=== PATIENT | female | born 1975 | race Caucasian/White ===

== ENCOUNTER 2016-11-28 08:17 | Day surgery (SDC) | payer OTHER ==
[~2016-11-28] VITALS: Ht 152.4 cm; Wt 112.0 kg
[2016-11-28] MEDS ORDERED: NS IV 1000 ML 1,000 ML ONE (08:26)
[2016-11-28] MEDS ORDERED: NS IV 1000 ML 1,000 ML IV STA (08:53)
[2016-11-28] MEDS ORDERED: fentaNYL INJECTION 100 MCG/2 ML AMP IVP PRN (09:00)
[2016-11-28] MEDS ORDERED: MIDAZOLAM 2 MG/2 ML (VERSED) VIAL IVP PRN (09:00)
[2016-11-28] MEDS ORDERED: NALOXONE 0.4 MG/ML 1 ML (NARCAN) VIAL IVP PRN (09:00)
[2016-11-28] MEDS ORDERED: FLUMAZENIL (ROMAZICON) 0.1 MG/ML 5 ML VIAL INJ PRN (09:00)
[2016-11-28] MEDS ORDERED: HURRICAINE EXT TUBE (BENZOCAINE) XX PRN (09:00)
[2016-11-28 09:01] VITALS: BP 116/77
[2016-11-28] MEDS ORDERED: proPOfol 200 MG/20 ML (DIPRIVAN) VIAL IV ONE (09:02)
[2016-11-28] MEDS ORDERED: OMEP40CA36 PO (09:09)
[2016-11-28] MEDS ORDERED: METF1000 PO (09:09)
[2016-11-28] MEDS ORDERED: SIMV5TAB PO (09:09)
[2016-11-28] MEDS ORDERED: CELE50CA PO (09:09)
[2016-11-28] MEDS ORDERED: ESCI5TAB PO (09:09)
[2016-11-28] MEDS ORDERED: HURRICAINE EXT TUBE (BENZOCAINE) ONE (11:54)
[2016-11-28] MEDS ORDERED: LACTATED RINGERS 1,000 ML IV ONE (12:23)
[2016-11-28] MEDS ORDERED: SUCR1TAB36 PO (12:34)
[2016-11-28] MEDS ORDERED: PANT40TA2 PO (12:34)
--- NOTE | 2016-11-28 12:34 | Progress Note-Post Operative ---
Post-Operative Progess Note Pre-Operative Diagnosis questionable hx adam's, GERD Post-Operative Diagnosis short segment adam's esophagitis, hiatal hernia Post-Op Procedure Note Date of Procedure: Nov 28, 2016 Name of Procedure: egd c biopsy Procedure Note/Findings see note Anesthesia Type per chemistry lab instructor Estimated blood loss (mL): none Specimen(s) collected GE junction COREEN PINO DO Nov 28, 2016 12:34 pm
--- NOTE | 2016-11-28 12:37 | Discharge Inst-Simple/Standard ---
Discharge Inst-Standard Discharge Medications New, Converted or Re-Newed RX: RX on Chart Patient Instructions/Follow Up Plan of Care/Instructions/FU: Follow up with Dr. Cazares in 2 -3 weeks Take medication as directed. Activity as Tolerated: Yes Discharge Diet: No Restrictions SHARITA REYNOSO APRN Nov 28, 2016 12:36
[2016-11-28 12:50] VITALS: BP 108/51
--- NOTE | 2016-11-28 12:52 | OPERATIVE REPORT ---
PROCEDURE PHYSICIAN: COREEN PINO DATE OF PROCEDURE: 11/28/2016 PREOPERATIVE DIAGNOSIS: 1. Questionable history of Gray's. 2. GERD. POSTOPERATIVE DIAGNOSES: 1. Short segment Gray's esophagitis. 2. Hiatal hernia. PROCEDURE: EGD with biopsy at GE junction. SURGEON: Sage. ANESTHESIA: Per CUTTING MACHINE OPERATOR. ESTIMATED BLOOD LOSS: None. COMPLICATIONS: None. INDICATIONS: The patient is a 40-year-old female with questionable history of Gray's and reflux. The patient states that she is not compliant with her omeprazole and does have return of her reflux symptoms. The patient was explained risk and benefits of the procedure and wishes to proceed with procedure. Consent was signed on the chart. PROCEDURE: The patient was taken to the endoscopy suite, placed in left lateral recumbent position. Timeout was performed. The scope was inserted in the mouth, down the esophagus, stomach and into the duodenum. There were no polyps, masses or ulcerations within the duodenum. The scope was slowly retracted back into the stomach where it was further insufflated. The stomach had no polyps, masses or ulcerations. The scope was retroflexed noting a small hiatal hernia. The scope was returned its normal position and slowly withdrawn until back into the esophagus. At the GE junction, there was a very short segment approximately 1 cm area which looks to be Gray's. Biopsy of this section was obtained. The scope was then slowly retracted back noting no further pathology. The scope was then slowly retracted with completely removed. The patient tolerated procedure well without any complications. She was taken to recovery room in stable condition. RECOMMENDATIONS: The patient will be switched to Protonix and Carafate. The patient will be explained need for compliance. Depending upon pathology, further recommendations pending. Job ID: [id number] Dictated Date: 11/28/2016 12:37:07 Load Mixer Date: 11/28/2016 12:46:22 / mckenna
[2016-11-28 13:15] VITALS: BP 111/90
[2016-11-28 13:25] VITALS: BP 111/90
== END 2016-11-28 13:25 | disposition home or self-care (01) ==
LOC: SDC 08:17
PROVIDERS: ATTEND Surgery
DX: K22.70 Barrett's esophagus without dysplasia (principal); K44.9 Diaphragmatic hernia without obstruction or gangrene
CPT/HCPCS: 82962

== ENCOUNTER → 2016-11-28 | Outpatient (CLI) | payer SELFPAY ==
[~2016-11-28] MED LIST: CELE50CA PO; ESCI5TAB PO; METF1000 PO; OMEP40CA36 PO; PANT40TA2 PO; SIMV5TAB PO; SUCR1TAB36 PO
--- NOTE | 2016-11-28 16:25 | Diagnostic Imaging Report ---
PROCEDURE: MRI lumbar spine. TECHNIQUE: Multiplanar, multisequence MRI of the lumbar spine was performed without contrast. INDICATION: Low back pain and right leg pain and numbness. FINDINGS: There is minimal posterior translation of L5 over S1 which appears to relate to disc height loss at this level. The alignment of the lumbar spine is satisfactory otherwise. The vertebral body heights are preserved. There is moderate disc height loss at the L5/S1 level. There is no significant marrow signal abnormality. There is disc desiccation at L5/S1 level. The cauda equina and conus medullaris appear grossly unremarkable. T12/L1: No disc herniation, no spinal canal or foraminal stenosis. L1/2: No disc herniation, no spinal canal or foraminal stenosis. L2/3: No disc herniation, no spinal canal or foraminal stenosis. There is mild facet hypertrophy at this level. L3/4: No disc herniation. There is mild facet hypertrophy. No spinal canal or foraminal stenosis. L4/5: There is no disc herniation. There is mild facet hypertrophy. No central canal or lateral recess stenosis. No foraminal stenosis. L5/S1: There is a mild disc bulge and mild facet hypertrophy. There is no significant central canal stenosis. There is mild narrowing in the left lateral recess and no significant narrowing in the right lateral recess. There is no significant foraminal stenosis. IMPRESSION: Generally mild degenerative changes seen in the lower lumbar spine facet joints and at the L5/S1 disc. There is only mild left lateral recess stenosis at L5/S1 level abutting the descending left S1 nerve root. There is otherwise no significant spinal canal or foraminal stenosis at any level. Dictated by: Dictated on workstation # [id number]
== END ==
LOC: RAD 15:10
PROVIDERS: ATTEND Nurse Practitioner Family
DX: M54.42 Lumbago with sciatica, left side (principal)
CPT/HCPCS: 72148

== ENCOUNTER 2017-04-10 13:56 | Outpatient (CLI) | payer SELFPAY ==
[~2017-04-10] VITALS: Ht 152.4 cm; Wt 112.0 kg
[2017-04-10] MEDS ORDERED: METF500T4 PO (14:21)
[2017-04-10] MEDS ORDERED: BACL10TA PO (14:21)
[2017-04-10] MEDS ORDERED: SIMV40TA PO (14:21)
[2017-04-10] MEDS ORDERED: CELE200C PO (14:21)
[2017-04-10] MEDS ORDERED: BUPR150T14 PO (14:21)
[2017-04-10] MEDS ORDERED: CHOL500049 PO (14:21)
[2017-04-10] MEDS ORDERED: PANT40TA2 PO (14:21)
== END 2017-04-10 14:26 ==
LOC: PREOP 13:56
PROVIDERS: ATTEND Surgery
DX: Z01.818 Encounter for other preprocedural examination (principal); R19.4 Change in bowel habit; K21.9 Gastro-esophageal reflux disease without esophagitis

== ENCOUNTER 2017-04-12 06:59 | Day surgery (SDC) | payer OTHER ==
[~2017-04-12] VITALS: Ht 152.4 cm; Wt 112.0 kg
[~2017-04-12 06:59] MED LIST changes: +BACL10TA PO; +BUPR150T14 PO; +CELE200C PO; +CHOL500049 PO; +METF500T4 PO; +SIMV40TA PO
[2017-04-12] MEDS ORDERED: NS IV 1000 ML 1,000 ML IV STA (07:04)
[2017-04-12] MEDS ORDERED: HURRICAINE EXT TUBE (BENZOCAINE) XX PRN (07:15)
[2017-04-12] MEDS ORDERED: PROPOFOL INJECTION 50 ML IV ONE (07:16)
[2017-04-12] MEDS ORDERED: MIDAZOLAM 2 MG/2 ML (VERSED) VIAL ONE ×2 (07:16)
[2017-04-12 07:29] VITALS: BP 139/92
[2017-04-12] MEDS ORDERED: HURRICAINE EXT TUBE (BENZOCAINE) ONE (07:44)
--- NOTE | 2017-04-12 07:47 | Progress Note-Pre Operative ---
Pre-Operative Progress Note H&P Reviewed The H&P was reviewed, patient examined and no changes noted. Date H&P Reviewed: April 12, 2017 Time H&P Reviewed: 07:46 Pre-Operative Diagnosis: gerd, hiatal hernia, history of adam's, change in bowel movements COREEN PINO DO April 12, 2017 07:47
[2017-04-12] MEDS ORDERED: proPOfol 200 MG/20 ML (DIPRIVAN) VIAL IV ONE (08:17)
[2017-04-12 08:30] VITALS: BP 121/72
--- NOTE | 2017-04-12 08:37 | Progress Note-Post Operative ---
Post-Operative Progess Note Surgeon (s)/Line Ordering Clinician (s) Surgeon COREEN PINO DO Line Ordering Clinician: na Pre-Operative Diagnosis gerd, hiatal hernia, history of adam's, change in bowel movements Post-Operative Diagnosis gerd, small hiatal hernia, short segment adam's, colon poyp cecum and sigmoid colon Procedure & Operative Findings Date of Procedure 04/12/17 Procedure Performed/Findings EGD with biopsies, colonoscopy with hot bx polypectomy x 2 Anesthesia Type per senior interactive developer Estimated Blood Loss Estimated blood loss (mL): scant Specimens/Packing Specimens Removed antrum, ge junction (multiple) cecal polyp, sigmoid polyp COREEN PINO DO April 12, 2017 8:37 am
[2017-04-12] MEDS ORDERED: SUCR1TAB36 PO ×3 (08:38→08:47)
--- NOTE | 2017-04-12 08:41 | Discharge Inst-Simple/Standard ---
Discharge Inst-Standard Discharge Medications New, Converted or Re-Newed RX: RX on Chart Patient Instructions/Follow Up Plan of Care/Instructions/FU: Patient to continue with Carafate 1g QID for 4 months Continue with Protonix 40 mg once a day Follow up with Dr. Cazares in 2 week Activity as Tolerated: Yes Discharge Diet: Eat Small Frequent Meals SHARITA REYNOSO APRN April 12, 2017 08:41
[2017-04-12 09:00] VITALS: BP 127/85
[2017-04-12 09:25] VITALS: BP 127/85
--- NOTE | 2017-04-16 12:53 | OPERATIVE REPORT ---
DATE OF SERVICE: 04/12/2017 PREOPERATIVE DIAGNOSIS: Gastroesophageal reflux disease, hiatal hernia, history of Gray's, change in bowel movements. POSTOPERATIVE DIAGNOSES: Gastroesophageal reflux disease, small hiatal hernia, short segment Gray's, colon polyp of the cecum and sigmoid colon. PROCEDURE: EGD with biopsies and colonoscopy with hot biopsy polypectomy x2. ANESTHESIA: Per WEAPONS DESIGNER. SURGEON: Coreen Cazares D.O. ESTIMATED BLOOD LOSS: Scant. INDICATIONS: The patient is a 41-year-old female with a history of Gray's. She has had worsening GERD. She has also had change in bowel movements. She understands risks and benefits of procedures and wished to proceed with procedure. Consent was signed in the chart. DESCRIPTION OF PROCEDURE: The patient was taken to the endoscopy suite, placed in left lateral recumbent position. Timeout was performed. Scope was inserted in mouth, down into esophagus, stomach and into the duodenum without difficulty. There were no polyps, masses or ulcerations within the duodenum. The scope was slowly retracted back. There are no polyps, masses or ulcerations within the stomach. Scope was retroflexed noting a small hiatal hernia. No other pathology noted. Scope was returned to its normal position. There were some slight erythematous changes in the antrum. Biopsy of the antrum was obtained. The scope was continued to slowly retracted back into the distal esophagus in which a very short segment of Gray's was present. Multiple biopsies were obtained. The scope was slowly retracted back noting no other pathology. The scope was slowly retracted until completely removed. Digital rectal exam was performed. There were no palpable polyps, masses or ulcerations. Scope was inserted in the rectum and advanced all the way to the cecum with minimal difficulty. Prep was adequate with irrigation and suction. Small polyp within the cecum for which hot biopsy polypectomy was performed. Scope was then continued to be slowly retracted back. There were no polyps, masses or ulcerations within the ascending, transverse and descending colon. In the sigmoid colon, a small sessile polyp present. Hot biopsy polypectomy was performed. Scope was then slowly retracted back into the rectum where it was also retroflexed noting no other pathology. Scope was returned to its normal position, slowly withdrawn until completely removed. The patient tolerated procedure well without any complications. She was taken to recovery room in stable condition. RECOMMENDATIONS: The patient will follow up in the office in 2 weeks to discuss pathology results. The patient will need repeat EGD in 1 year, would consider sending to gastroenterology. Colonoscopy, patient with polyps would repeat colonoscopy in 5 years. If she has any problems prior to that, she should be reevaluated. We will make sure the patient is on Protonix and Carafate at this time and see how her symptoms, if they improve. Job ID: [id number] DocumentID: [id number] Dictated Date: 04/12/2017 08:39:07 Marketing Content Specialist Date: 04/12/2017 09:45:34 Dictated By: COREEN CAZARES DO
== END 2017-04-12 09:25 | disposition home or self-care (01) ==
LOC: ENDO 06:59
PROVIDERS: ATTEND Surgery
DX: K63.5 Polyp of colon (principal); R19.4 Change in bowel habit; K22.70 Barrett's esophagus without dysplasia; K21.9 Gastro-esophageal reflux disease without esophagitis; K44.9 Diaphragmatic hernia without obstruction or gangrene; F17.210 Nicotine dependence, cigarettes, uncomplicated
CPT/HCPCS: 82962

== ENCOUNTER 2017-08-29 08:11 | Outpatient (RCR) | payer OTHER | END 2017-10-01 09:48 | disposition home or self-care (01) | PROVIDERS: ATTEND Nurse Practitioner Family | DX: M54.42 Lumbago with sciatica, left side (principal) ==

== ENCOUNTER → 2017-09-04 | Outpatient (CLI) | payer OTHER ==
--- NOTE | 2017-09-04 11:00 | Diagnostic Imaging Report ---
PROCEDURE: CT abdomen and pelvis without contrast. TECHNIQUE: Multiple contiguous axial images were obtained through the abdomen and pelvis without the use of intravenous contrast. INDICATION: Dysuria and bilateral flank pain. FINDINGS: There is a 7 mm noncalcified nodular density in the left lung base. Right lung base is clear. Heart size is normal. There is no pleural or pericardial fluid. There is mild fatty infiltration of the liver. Gallbladder is surgically absent. There is no biliary ductal dilatation. Spleen is normal. The pancreas and adrenal glands are unremarkable. The kidneys are normal in appearance. Specifically, there is no evidence of nephrolithiasis or obstructive uropathy. Abdominal aorta is nonaneurysmal. Bowel gas pattern is nonspecific. Bladder is normal. There is no pelvic mass, adenopathy or free fluid. There are mild degenerative changes in the spine. IMPRESSION: 1. 7 mm noncalcified nodular density in the left lung base. This is likely a noncalcified granuloma however early neoplastic process cannot be entirely excluded. Short interval followup CT in two months is recommended to ensure stability. 2. Hepatomegaly and fatty infiltration of the liver. 3. No other acute abnormality in the abdomen or pelvis. Specifically, there is no evidence of nephrolithiasis or obstructive uropathy. Dictated by: Dictated on workstation # [id number]
== END ==
LOC: RAD 09:58
PROVIDERS: ATTEND Nurse Practitioner Family
DX: R91.1 Solitary pulmonary nodule (principal); K76.0 Fatty (change of) liver, not elsewhere classified; R16.0 Hepatomegaly, not elsewhere classified
CPT/HCPCS: 74176

== ENCOUNTER → 2017-11-15 | Outpatient (CLI) | payer OTHER ==
[~2017-11-15] MED LIST changes: +IOHEXOL 350 MG/ML 100 ML (OMNIPAQUE 350) VIAL IV ONE; +NS 100 ML (IVPB) BAG IV ONE
--- NOTE | 2017-11-15 08:37 | Diagnostic Imaging Report ---
PROCEDURE: CT chest with contrast only. TECHNIQUE: Multiple contiguous axial images were obtained through the chest after administration of intravenous contrast. INDICATION: Followup pulmonary nodule seen on previous CT abdomen and pelvis. COMPARISON: CT abdomen pelvis dated 09/04/2017. FINDINGS: Evaluation of lung windows demonstrates no focal consolidation, pleural effusion, nor pneumothorax. There is mild image degradation secondary to motion artifact. Small micronodule is again identified involving the anterolateral margins of the left lower lobe and measures approximately 6 mm on today's exam. This has not significantly changed compared to 7 mm on prior study. No other pulmonary nodules or masses are identified. Cardiomediastinal structures show normal heart size. There is no large pericardial effusion. No pathologically enlarged or morphologically abnormal adenopathy is seen within the mediastinum, wero, nor axilla. Included portions of the upper abdomen show hypodense appearance to the hepatic parenchyma. Bony structures show no acute abnormalities. IMPRESSION: 1. 6-7 mm micronodule in the left lower lobe is stable compared to 09/04/2017. Please see below for recommendations for pulmonary micronodule followup. 2. No new pulmonary nodules or masses. No other adverse interval change is identified. 3. Hepatic steatosis. PULMONARY NODULE FOLLOW-UP Single nodule: <6 mm: * Low risk patient - no routine follow up * High risk patient - optional at 12 months 6-8 mm in size: * Low risk patient - Ct at 6-12 months, then consider at 18-24 months * High risk patient - Ct at 6-12 months, then at 18-24 months >8 mm * Low risk patient - consider CT at 3 months, PET/CT or tissue sampling * High risk patient - consider CT at 3 months, PET/CT, or tissue sampling (Certain patients at thigh risk with suspicious nodule morphology, upper lobe location, or both may warrant 12-month follow-up) Dictated by: Dictated on workstation # [id number]
== END ==
LOC: RAD 07:38
PROVIDERS: ATTEND Nurse Practitioner Family
DX: R91.1 Solitary pulmonary nodule (principal); K76.0 Fatty (change of) liver, not elsewhere classified
CPT/HCPCS: 71260

== ENCOUNTER → 2019-06-25 | Outpatient (CLI) | payer OTHER ==
[~2019-06-25] MED LIST changes: -IOHEXOL 350 MG/ML 100 ML (OMNIPAQUE 350) VIAL IV ONE; +METF-397 PO; +METF-399 PO; -METF1000 PO; -METF500T4 PO; -NS 100 ML (IVPB) BAG IV ONE
--- NOTE | 2019-06-25 12:34 | Diagnostic Imaging Report ---
PROCEDURE: CT chest without contrast. TECHNIQUE: Multiple contiguous axial images were obtained through the chest without the use of intravenous contrast. Auto Exposure Controls were utilized during the CT exam to meet ALARA standards for radiation dose reduction. INDICATION: Lung nodule. FINDINGS: Comparison is 11/15/2017. There is a stable 6 mm perifissural nodule with triangular appearance along the left fissure in keeping with a lymph node. No suspicious nodules are seen. No edema or pneumonia. No pleural effusion or pneumothorax. Heart size is normal. No pericardial effusion. Aorta is normal in caliber. There is no axillary, supraclavicular or mediastinal lymphadenopathy. Limited views of the upper abdomen are normal. The gallbladder has been resected. There are no suspicious osseous lesions. IMPRESSION: 1. Stable fissural lymph node in the left lung, no suspicious pulmonary nodules. Dictated by: Dictated on workstation # [id number]
== END ==
LOC: RAD 11:47
PROVIDERS: ATTEND Nurse Practitioner Primary Care
DX: R91.1 Solitary pulmonary nodule (principal)
CPT/HCPCS: 71250

== ENCOUNTER 2021-03-04 05:40 | Outpatient (RCR) | payer OTHER ==
[~2021-03-04] VITALS: Ht 149.9 cm; Wt 110.0 kg
[~2021-03-04 05:40] MED LIST changes: +ATOR40TA70 PO; +ESCI20TA39 PO; +GABA300C PO; +OMEP40CA27 PO; -OMEP40CA36 PO
== END 2021-03-04 09:34 | disposition home or self-care (01) ==
LOC: PREOP 05:40
PROVIDERS: ATTEND Surgery
DX: Z01.818 Encounter for other preprocedural examination (principal)

== ENCOUNTER → 2022-12-12 | Outpatient (CLI) | payer BC ==
[~2022-12-12] VITALS: Ht 149.4 cm; Wt 108.0 kg
[~2022-12-12] MED LIST changes: +BUPR-105 PO; -BUPR150T14 PO; +LISI5TAB20 PO; -OMEP40CA27 PO; +OMEP40CA6 PO
== END ==
LOC: PREOP 05:30
PROVIDERS: ATTEND Surgery
DX: Z01.818 Encounter for other preprocedural examination (principal)

== ENCOUNTER → 2023-04-09 | Outpatient (CLI) | payer BC ==
[~2023-04-09] MED LIST changes: +ATOR80TA76 PO; +AZIT250T12 PO; +BENZ100C18 PO; +CEFD300C3 PO; +CELE-63 PO; +CHOL100048 PO; +DULO30CA49 PO; +METF-478 PO; +METF-865 PO; +NITR100C10 PO; +OMEG100032 PO; +PANT40TA52 PO; +RT-ALBUTEROL SULF 2.5 MG/3 ML PRE-MIX VIAL INH ONE; +SIMV-334 PO; -SIMV40TA PO
== END ==
LOC: RT 10:09
PROVIDERS: ATTEND Nurse Practitioner Family
DX: F17.210 Nicotine dependence, cigarettes, uncomplicated (principal)
CPT/HCPCS: 94060; 94726; 94729

== ENCOUNTER 2023-04-26 19:13 | Emergency (ER) | payer BC ==
[~2023-04-26] VITALS: Ht 152 cm; Wt 104.0 kg
[~2023-04-26 19:13] MED LIST changes: -RT-ALBUTEROL SULF 2.5 MG/3 ML PRE-MIX VIAL INH ONE
--- NOTE | 2023-04-26 19:49 | ED Integumentary General ---
"General Chief Complaint: Skin/Wound Problems Stated Complaint: RIPPED TOE NAIL OFF|FELL Nursing Triage Note: pt presents to ED with c/o nearly ripping off right big toenail after stubbing foot on a piece of steel. pt was scheduled to have toenail removed next week. bleeding controlled at this time. unknown last tetanus shot. Source: patient Exam Limitations: no limitations (ALLAN VELAZCO) History of Present Illness Date Seen by Provider: Apr 26, 2023 Time Seen by Provider: 19:47 Initial Comments Patient is a 47-year-old female presents ED with potential toenail injury. She states around 640 PM she tripped over a cattle panel in her garden pulling back her nail on her right big toe. She report immediate pain. She denies kicking anything but more of a trip. History of toenail removal in the past. She does follow-up with the radio journalist. She is up-to-date on her tetanus. Denies nausea, vomiting, diarrhea fever, chills (ALLAN VELAZCO) Allergies and Home Medications Allergies Coded Allergies: codeine (Unverified Allergy, Unknown, 04/10/17) latex (Unverified Allergy, Unknown, 04/10/17) Patient Home Medication List Home Medication List Reviewed: Yes (ALLAN VELAZCO) Atorvastatin Calcium (Atorvastatin Calcium) 80 Mg Tablet, 80 MG PO HS, (Reported) Entered as Reported by: ROJAS GRANT on 03/09/23 1320 Azithromycin (Azithromycin) 250 Mg Tablet, 250 MG PO DAILY Prescribed by: JONNATHAN CHAIREZ on 03/12/23 1021 Benzonatate (Tessalon Perles) 100 Mg Capsule, 200 MG PO TID Prescribed by: JONNATHAN CHAIREZ on 03/12/23 102 Cefdinir (Cefdinir) 300 Mg Capsule, 300 MG PO BID Prescribed by: JONNATHAN CHAIREZ on 03/12/23 1021 Cephalexin (Cephalexin) 500 Mg Tablet, 500 MG PO QID Prescribed by: MEGHAN COBOS on 04/26/232020 Cholecalciferol (Vitamin D3) (Vitamin D3) 25 Mcg (1000 Unit) Capsule, 25 MCG PO DAILY, (Reported) Entered as Reported by: ROJAS GRANT on 03/09/23 1320 Duloxetine HCl (Duloxetine HCl) 30 Mg Capsule.dr, 60 MG PO HS, (Reported) Entered as Reported by: ROJAS GRANT on 03/09/23 132 Gabapentin (Neurontin) 300 Mg Capsule, 300 MG PO HS, (Reported) Entered as Reported by: ALLISON ANDRADE on 03/01/21 1108 Lisinopril (Lisinopril) 5 Mg Tablet, 5 MG PO HS, (Reported) Entered as Reported by: ROJAS GRANT on 03/09/23 1320 [place]-3/Dha/Epa/Fish Oil (Fish Oil 1,000 mg Softgel) 1,000 Mg (120 Mg-180 Mg) Capsule, 1,000 MG PO BID, (Reported) Entered as Reported by: ROJAS GRANT on 03/09/23 132 Pantoprazole Sodium (Pantoprazole Sodium) 40 Mg Tablet.dr, 40 MG PO HS, (Reported) Entered as Reported by: ROJAS GRANT on 03/09/23 1320 Review of Systems Review of Systems Constitutional: No diaphoresis EENTM: No ear pain, No blurred vision, No double vision Respiratory: No cough, No dyspnea on exertion Cardiovascular: No chest pain Gastrointestinal: No abdominal pain, No diarrhea, No nausea, No vomiting Genitourinary: No decreased output, No discharge Musculoskeletal: No back pain; joint pain, joint swelling Skin: change in color (ALLAN VELAZCO) All Other Systems Reviewed Negative Unless Noted: Yes (ALLAN VELAZCO) Past Vbdtdji-Rejdyz-Izakbp Hx Patient Social History Tobacco Use?: Yes Tobacco type used: Cigarettes Smoking Status: Current Everyday Smoker Use of E-Cig and/or Vaping dev: No Substance use?: No Alcohol Use?: No (ALLAN VELAZCO) Immunizations Up To Date Tetanus Booster (TDap): Unknown Influenza Vaccine Up-to-Date: No; Not Current First/Initial COVID19 Vaccinat: na (ALLAN VELAZCO) Seasonal Allergies Seasonal Allergies: No (ALLAN VELAZCO) Past Medical History Surgery/Hospitalization HX: anx/dep, ocd, gerd, djd, uti, hld, joel, ch back pain, arthritis, ptsd, fibromyalgia, niddm, personality d/o, colonoscopy, hysterectomy, appendectomy, c-sect, t/a, tubal, cholecystectomy Surgeries: Yes (CS X3) Adenoidectomy, Appendectomy, Section, Gallbladder, Hysterectomy, Tonsillectomy Respiratory: Yes Sleep Apnea Currently Using CPAP: No Currently Using BIPAP: No Cardiac: Yes (PALPATATIONS) High Cholesterol, Hypertension, Palpitations Neurological: No Reproductive Disorders: No SUPERVISOR History: Hysterectomy Sexually Transmitted Disease: No HIV/AIDS: No Genitourinary: No UTI-Chronic Gastrointestinal: Yes Gastroesophageal Reflux, Gray's Esophagus, Chronic Constipation, Chronic Diarrhea, Polyps, Ulcer Musculoskeletal: Yes Degenerate Disk Disease, Arthritis, Chronic Back Pain Endocrine: Yes Diabetes, Non-Insulin dep HEENT: Yes (dentures, ) Loss of Vision: Denies Hearing Impairment: Denies Cancer: No Psychosocial: Yes (OCD) Anxiety, PTSD, Personality Disorder, Depression Integumentary: No Blood Disorders: No Adverse Reaction/Blood Tranf: No (ALLAN VELAZCO) Family Medical History Heart Disease, Diabetes (ALLAN VELAZCO) Physical Exam Vital Signs Vital Signs - First Documented 04/26/23 19:39 Temp 36.8 Pulse 88 Resp 18 B/P (MAP) 158/92 (114) Pulse Ox 97 O2 Delivery Room Air (TABATHA,TERESITA K DO) Vital Signs Capillary Refill : (ALLAN VELAZCO) General Appearance: WD/WN, no apparent distress HEENT: PERRL/EOMI, normal ENT inspection, TMs normal, pharynx normal Neck: non-tender, full range of motion, supple Cardiovascular: regular rate, rhythm, no edema, no gallop, no JVD Respiratory: chest non-tender, lungs clear, normal breath sounds, no respiratory distress, no accessory muscle use Gastrointestinal: normal bowel sounds, non tender, soft, no organomegaly Back: normal inspection, no CVA tenderness, no vertebral tenderness Extremities: normal inspection, no pedal edema, other (Partial right big toe nail avulsion. Nail still attached. No surrounding redness or swelling. Right big toe tenderness) Neurologic/Psychiatric: pci security consultant II-XII nml as tested, no motor/sensory deficits, alert, normal mood/affect Skin: normal color, warm/dry (ALLAN VELAZCO) Procedures/Interventions Toenail removal right big toe. Prepped with Betadine. Digital block four-way approach 1% lidocaine 4 mLS. Successful removal of right big toe nail. (ALLAN VELAZCO) Progress/Results/Core Measures Results/Orders Vital Signs/I&O 04/26/23 04/26/23 19:39 20:36 Temp 36.8 Pulse 88 84 Resp 18 18 B/P (MAP) 158/92 (114) 123/84 Pulse Ox 97 96 O2 Delivery Room Air Room Air (TERESITA MAYS DO) Blood Pressure Mean: 114 Departure Communication (PCP) Reviewed previous ER visits, H&P, lab testing. Differential diagnosis toenail avulsion, toe fracture. Patient had no tenderness to palpate of the right toe. Nail partially attached. Successful removal of the nail of the right big toe with forceps after using lidocaine digital block. Patient tolerated procedure well. Neosporin topical for the next 7 to 10 days. Keep the area covered. If increased redness or swelling to return back to ED. Follow-up with your radio journalist. Patient refused x-ray. Up-to-date on her tetanus. (ALLAN VELAZCO) Impression Primary Impression: Nail avulsion, toe Disposition: 01 HOME, SELF-CARE Condition: Stable Departure-Patient Inst. Decision time for Depature: 20:21 (ALLAN VELAZCO) Referrals: JENN FAYE APRN (PCP/Family) Primary Care Physician Patient Instructions: Nail Avulsion (DC) Add. Discharge Instructions: Neosporin twice a day for the next 7 to 10 days. Keep the area covered. If increased redness, swelling take Keflex. Follow-up your radio journalist All discharge instructions reviewed with patient and/or family. Voiced understanding. Scripts Cephalexin (Cephalexin) 500 Mg Tablet 500 MG PO QID for 7 Days, #28 TAB Prov: ALLAN VELAZCO 04/26/23 ATTENDING PHYSICIAN NOTE: I WAS PHYSICALLY PRESENT ER PHYSICIAN, BUT I WAS NOT INVOLVED IN ANY DECISION MAKING OR ANY CARE OF THIS PATIENT, AND I AM NOT COLLABORATING PHYSICIAN. (TERESITA MAYS DO) ALLAN VELAZCO Apr 26, 2023 19:49 TERESITA MAYS DO Apr 28, 2023 06:09"
[2023-04-26] MEDS ORDERED: CEPH500T PO (20:21)
[2023-04-26 20:36] VITALS: BP 123/84
== END 2023-04-26 20:37 | disposition home or self-care (01) ==
LOC: EDUNIT# 19:13 → ER 19:14
DX: S91.201A Unspecified open wound of right great toe with damage to nail, initial encounter (principal); F17.210 Nicotine dependence, cigarettes, uncomplicated; Z91.040 Latex allergy status; Z28.310 Unvaccinated for COVID-19; W22.8XXA Striking against or struck by other objects, initial encounter
CPT/HCPCS: 11730; 64450

== ENCOUNTER 2023-06-29 19:34 | Outpatient (CLI) | payer BC ==
[~2023-06-29 19:34] MED LIST changes: +CEPH500T PO
== END 2023-06-30 06:23 | disposition home or self-care (01) ==
LOC: SLEEP 19:34
PROVIDERS: ATTEND Nurse Practitioner Family
DX: G47.30 Sleep apnea, unspecified (principal); J45.30 Mild persistent asthma, uncomplicated; G47.10 Hypersomnia, unspecified; E66.01 Morbid (severe) obesity due to excess calories
CPT/HCPCS: 95810